=== PATIENT | female | born 1970 | race Caucasian/White ===

== ENCOUNTER 2017-11-23 09:47 | Outpatient (CLI) | payer BC | END 2017-11-23 09:48 | disposition home or self-care (01) | LOC: BICMAMMO 09:47 | PROVIDERS: ATTEND Family Medicine | DX: Z12.31 Encounter for screening mammogram for malignant neoplasm of breast (principal) | CPT/HCPCS: 77063; 77067 ==

== ENCOUNTER 2018-06-20 12:22 | Day surgery (SDC) | payer BC ==
[2018-06-20] MEDS ORDERED: Clindamycin/D5W 600 mg/50 ml Premix Bag ONE (14:51)
[2018-06-20] MEDS ORDERED: Ondansetron HCl/PF 4 MG/2 ML Vial ONE (15:39)
[2018-06-20] MEDS ORDERED: Lidocaine 1% PF 5 ML VIAL ONE (15:39)
[2018-06-20] MEDS ORDERED: Ketorolac Tromethamine 30 MG/ML VIAL ONE (15:39)
[2018-06-20] MEDS ORDERED: PROPOFOL 200 MG/20 ML VIAL ONE (15:39)
[2018-06-20] MEDS ORDERED: Dexamethasone 20 MG/5 ML VIAL ONE (15:39)
[2018-06-20] MEDS ORDERED: ePHEDrine/0.9% NaCl/PF SYRINGE 50 mg/10 ml ONE (15:39)
[2018-06-20] MEDS ORDERED: Fentanyl 100 MCG/2 ML VIAL ONE (16:16)
[2018-06-20] MEDS ORDERED: Bupivacaine HCl 0.5%/Epinephrine 1:200,000/PF 30 ml Vial ONE (17:24)
[2018-06-20] MEDS ORDERED: HYDROcodone/Acetaminophen 5/325 mg Tablet ONE (18:49)
--- NOTE | 2018-06-20 20:16 | RAD ---
LEFT ANKLE THREE VIEWS: 06/20/18 HISTORY: Fracture of the distal left fibula. FINDINGS/IMPRESSION: Three spot fluoroscopic intraoperative images of the left ankle demonstrate interval reduction and in ternal fixation of the distal left fibular fracture with screw since 06/18/18. POS: [facility]
--- NOTE | 2018-06-21 15:31 | OP ---
DATE OF PROCEDURE: 06/20/2018 PREOPERATIVE DIAGNOSIS: Left lateral malleolus fracture. POSTOPERATIVE DIAGNOSIS: Left lateral malleolus fracture. SURGICAL PROCEDURE: Open reduction with internal fixation left lateral malleolus. ANESTHESIA: General. SURGEON: Valdo Deleon M.D. PRESS OPERATOR [employer]BON BLOCKS: Edwin Salvador PA-C. TOURNIQUET TIME: Sixteen minutes at 300 mmHg. IMPLANTS: Synthes 6.5 mm cancellous screw with 32 mm threads. COMPLICATIONS: None. DRAINS: None. SPECIMEN: None. OUTCOME: Near anatomic alignment. INDICATIONS: Ms. Mathis is a pleasant 47-year-old lady status post twisting injury to left ankle emanuel taining a mildly displaced lateral malleolus fracture. After discussion with patient including risks and benefits, we have decided to proceed with open reduction and internal fixation. Informed consen t has been obtained. I believe all questions have been answered. DESCRIPTION OF PROCEDURE: Patient was brought to the operating room and a timeout performed followed by induction of general anesthesia. The patient was then positioned supine on the OR table and a st erile prep and drape was performed of the left lower extremity. Next, the limb was exsanguinated wit h Esmarch bandage and tourniquet inflated to 300 mmHg. A small vertical incision was made extending from just distal to the tip of the lateral malleolus proximally for a distance of approximately 1 inc h. After the skin was sharply incised, dissection was carried down bluntly exposing the underlying p eriosteum that had torn in line with the fracture line. The periosteum was removed from the fracture gap and the fracture reduced and held in place with a bone tenaculum. Next, a 4.5 mm drill was used to obtain a starting point at the tip of the lateral malleolus. This was then followed by insertion of a 6.5 mm cancellous screw up the shaft of the fibula getting excellent compression across the fra cture as visualized both directly and through C-arm imaging. Once appropriately positioned, the woun d was irrigated with normal saline with bulb syringe and then closed in layers with 0 Vicryl deep, fo llowed by 2-0 Vicryl and then bree for the skin. A Xeroform gauze, Webril, and fiberglass splint was applied to the ankle. Tourniquet was let down and then patient was transferred to recovery room in stable condition. There were no complications. The patient tolerated the procedure well.
== END 2018-06-20 19:30 | disposition home or self-care (01) ==
LOC: SDC 12:22
PROVIDERS: ATTEND Orthopaedic Surgery
PROC: 0QSK04Z Reposition Left Fibula with Internal Fixation Device, Open Approach (ICD-10-PCS; principal; 2018-06-20)
DX: S82.62XA Displaced fracture of lateral malleolus of left fibula, initial encounter for closed fracture (principal); F17.200 Nicotine dependence, unspecified, uncomplicated; Z88.0 Allergy status to penicillin; Z88.5 Allergy status to narcotic agent; W18.42XA Slipping, tripping and stumbling without falling due to stepping into hole or opening, initial encounter
CPT/HCPCS: 76001; C1713; J0670; J1100; J1885; J2001; J2405; J2704; J3010; J3490

== ENCOUNTER 2021-02-10 18:14 | Inpatient (IN) | payer SELFPAY ==
[2021-02-10] MEDS ORDERED: Ondansetron PF 4 MG/2 ML Vial IVP PRN ×2 (21:30→23:41)
[2021-02-10] MEDS ORDERED: Acetaminophen 325 MG TAB PO PRN ×2 (21:30→23:41)
[2021-02-10] MEDS ORDERED: Ondansetron ODT 4 MG TAB SL PRN (21:30)
[2021-02-10] MEDS ORDERED: Sodium Chloride 0.9% 1,000 ML IV SCH (21:30)
[2021-02-10 21:42] VITALS: BMI 32.6
[2021-02-10] MEDS ORDERED: Loperamide HCl 2 MG CAP PO PRN (23:41)
[2021-02-10] MEDS ORDERED: Benzonatate 100 MG CAP PO PRN (23:44)
[2021-02-10] MEDS: Sodium Chloride 0.9% 1,000 ML IV SCH (23:59)
[2021-02-11] MEDS: Guaifenesin DM 100-10/5 ML UDCUP PO PRN ×2 (04:06→08:08)
[2021-02-11] MEDS: Sodium Chloride 0.9% 1,000 ML IV SCH (05:19)
[2021-02-11 06:56] LABS: #Lymphocytes 0.7 thou/uL (1.20-3.40); #Monocytes 0.2 thou/uL (0.11-0.59); #Neutrophils 3.4 thou/uL (1.40-6.50); %Basophils 0.4 % (0.0-1.0); %Eosinophils 0.1 % (0.0-10.0); %Lymphocytes 16.3 % (21.0-51.0); %Monocytes 4.6 % (0.0-10.0); %Neutrophils 78.6 % (42.0-75.0); Hemoglobin 12.7 g/dL (12.0-16.0); Mean Corpuscular HGB CONC 32.4 g/dL (32.0-36.0); Mean Corpuscular Hemoglobin 29.6 pg (27.0-31.0); Mean Corpuscular Volume 91.3 fL (78.0-98.0); Mean Platelet Volume 8.3 fL (7.4-10.4); Platelet Count 213 thou/uL (130-400); RBC Distribution Width 12.4 % (11.5-14.5); White Blood Cell (WBC) Count 4.4 thou/uL (4.8-10.8)
[2021-02-11 07:11] LABS: Anion Gap 12 mmol/L (10-20); BUN (Urea Nitrogen) 12 mg/dL (9.8-20.1); Calc. Creatinine Clearance 122 mL/min (70-130); Calcium 8.2 mg/dL (7.8-10.44); Carbon Dioxide 21 mmol/L (22-29); Chloride 112 mmol/L (98-107); Glucose 118 mg/dL (70-105); Sodium 141 mmol/L (136-145)
[2021-02-11 07:12] LABS: ALT (SGPT) 95 U/L (8-55); AST (SGOT) 91 U/L (5-34); Alkaline Phosphatase 113 U/L (40-110); Bilirubin, Direct 0.2 mg/dL (0.1-0.3); Bilirubin, Total 0.4 mg/dL (0.2-1.2); CRP (Inflammatory) 10.81 mg/dL (= or < 0.5); Protein, Total 5.9 g/dL (6.0-8.3)
[2021-02-11] MEDS: Zinc Sulfate 220 MG CAP PO SCH (08:05)
[2021-02-11] MEDS: Ascorbic Acid 500 mg Chewable Tablet PO SCH (08:05)
[2021-02-11] MEDS: Dexamethasone 4 mg/ml Vial SLOW IVP SCH (08:05)
[2021-02-11] MEDS: Enoxaparin Sodium 40 MG/0.4 ML SYRINGE SC SCH ×2 (08:06→19:51)
[2021-02-11] MEDS ORDERED: Famotidine 20 MG TAB PO SCH (09:00)
[2021-02-12] MEDS: Guaifenesin DM 100-10/5 ML UDCUP PO PRN ×3 (04:23→14:58)
[2021-02-12 06:18] LABS: #Lymphocytes 1.3 thou/uL (1.20-3.40); #Monocytes 0.5 thou/uL (0.11-0.59); #Neutrophils 7.2 thou/uL (1.40-6.50); %Basophils 0.3 % (0.0-1.0); %Eosinophils 0.1 % (0.0-10.0); %Lymphocytes 14.3 % (21.0-51.0); %Monocytes 5.9 % (0.0-10.0); %Neutrophils 79.5 % (42.0-75.0); Hemoglobin 12.6 g/dL (12.0-16.0); Mean Corpuscular HGB CONC 31.5 g/dL (32.0-36.0); Mean Corpuscular Hemoglobin 28.8 pg (27.0-31.0); Mean Corpuscular Volume 91.3 fL (78.0-98.0); Mean Platelet Volume 8.5 fL (7.4-10.4); Platelet Count 258 thou/uL (130-400); RBC Distribution Width 12.4 % (11.5-14.5); Red Blood Cell (RBC) Count 4.37 mill/uL (4.20-5.40)
[2021-02-12 06:42] LABS: ALT (SGPT) 92 U/L (8-55); AST (SGOT) 63 U/L (5-34); Albumin 3.1 g/dL (3.5-5.0); Alkaline Phosphatase 112 U/L (40-110); Anion Gap 12 mmol/L (10-20); BUN (Urea Nitrogen) 11 mg/dL (9.8-20.1); Bilirubin, Direct 0.3 mg/dL (0.1-0.3); Bilirubin, Total 0.5 mg/dL (0.2-1.2); Calc. Creatinine Clearance 115 mL/min (70-130); Calcium 8.7 mg/dL (7.8-10.44); Carbon Dioxide 23 mmol/L (22-29); Chloride 110 mmol/L (98-107); Glucose 120 mg/dL (70-105); Potassium 3.7 mmol/L (3.5-5.1); Sodium 141 mmol/L (136-145)
[2021-02-12] MEDS: Dexamethasone 4 mg/ml Vial SLOW IVP SCH (08:40)
[2021-02-12] MEDS: Zinc Sulfate 220 MG CAP PO SCH (08:40)
[2021-02-12] MEDS: Ascorbic Acid 500 mg Chewable Tablet PO SCH (08:40)
[2021-02-12] MEDS: Enoxaparin Sodium 40 MG/0.4 ML SYRINGE SC SCH ×2 (08:41→20:04)
[2021-02-12] MEDS: Benzonatate 100 MG CAP PO SCH ×2 (14:58→20:04)
[2021-02-13 06:47] LABS: Anion Gap 11 mmol/L (10-20); BUN (Urea Nitrogen) 10 mg/dL (9.8-20.1); Calc. Creatinine Clearance 109 mL/min (70-130); Calcium 8.8 mg/dL (7.8-10.44); Carbon Dioxide 27 mmol/L (22-29); Chloride 109 mmol/L (98-107); Glucose 96 mg/dL (70-105); Potassium 3.7 mmol/L (3.5-5.1); Sodium 143 mmol/L (136-145)
[2021-02-13] MEDS: Guaifenesin DM 100-10/5 ML UDCUP PO PRN ×3 (06:49→21:04)
[2021-02-13 07:37] LABS: #Basophils 0.1 thou/uL (0.0-0.2); #Eosinphils 0.1 thou/uL (0.0-0.7); #Lymphocytes 1.7 thou/uL (1.20-3.40); #Monocytes 0.6 thou/uL (0.11-0.59); #Neutrophils 7.6 thou/uL (1.40-6.50); %Basophils 0.6 % (0.0-1.0); %Eosinophils 0.9 % (0.0-10.0); %Lymphocytes 16.8 % (21.0-51.0); %Neutrophils 75.7 % (42.0-75.0); Hemoglobin 13.3 g/dL (12.0-16.0); Mean Corpuscular HGB CONC 32.7 g/dL (32.0-36.0); Mean Corpuscular Volume 91.9 fL (78.0-98.0); Mean Platelet Volume 9.7 fL (7.4-10.4); Platelet Count 81 thou/uL (130-400); Platelet Morphology Comment Appears Decreased; RBC Distribution Width 12.2 % (11.5-14.5); Red Blood Cell (RBC) Count 4.43 mill/uL (4.20-5.40); White Blood Cell (WBC) Count 10.1 thou/uL (4.8-10.8)
[2021-02-13 07:39] LABS: MDiff Complete? YES
[2021-02-13] MEDS: Dexamethasone 4 mg/ml Vial SLOW IVP SCH (08:35)
[2021-02-13] MEDS: Zinc Sulfate 220 MG CAP PO SCH (08:35)
[2021-02-13] MEDS: Ascorbic Acid 500 mg Chewable Tablet PO SCH (08:35)
[2021-02-13] MEDS: Benzonatate 100 MG CAP PO SCH ×3 (08:35→20:46)
[2021-02-13] MEDS: Enoxaparin Sodium 40 MG/0.4 ML SYRINGE SC SCH ×2 (08:36→20:47)
[2021-02-14] MEDS: Guaifenesin DM 100-10/5 ML UDCUP PO PRN ×2 (05:54→16:10)
[2021-02-14 06:24] LABS: #Eosinphils 0.1 thou/uL (0.0-0.7); #Lymphocytes 1.9 thou/uL (1.20-3.40); #Monocytes 0.8 thou/uL (0.11-0.59); %Basophils 0.2 % (0.0-1.0); %Eosinophils 0.9 % (0.0-10.0); %Lymphocytes 24.7 % (21.0-51.0); %Monocytes 9.8 % (0.0-10.0); %Neutrophils 64.4 % (42.0-75.0); Hemoglobin 12.1 g/dL (12.0-16.0); Mean Corpuscular HGB CONC 31.8 g/dL (32.0-36.0); Mean Corpuscular Hemoglobin 29.2 pg (27.0-31.0); Mean Corpuscular Volume 91.7 fL (78.0-98.0); Mean Platelet Volume 8.5 fL (7.4-10.4); Platelet Count 286 thou/uL (130-400); RBC Distribution Width 12.2 % (11.5-14.5); Red Blood Cell (RBC) Count 4.13 mill/uL (4.20-5.40); White Blood Cell (WBC) Count 7.7 thou/uL (4.8-10.8)
[2021-02-14 06:57] LABS: Anion Gap 12 mmol/L (10-20); BUN (Urea Nitrogen) 11 mg/dL (9.8-20.1); Calc. Creatinine Clearance 124 mL/min (70-130); Calcium 8.5 mg/dL (7.8-10.44); Carbon Dioxide 27 mmol/L (22-29); Chloride 108 mmol/L (98-107); Glucose 100 mg/dL (70-105); Potassium 4.3 mmol/L (3.5-5.1); Sodium 143 mmol/L (136-145)
[2021-02-14 07:58] VITALS: BP 113/70; TEMP 98.2
[2021-02-14] MEDS: Ascorbic Acid 500 mg Chewable Tablet PO SCH (08:33)
[2021-02-14] MEDS: Dexamethasone 4 mg/ml Vial SLOW IVP SCH (08:34)
[2021-02-14] MEDS: Zinc Sulfate 220 MG CAP PO SCH (08:34)
[2021-02-14] MEDS: Enoxaparin Sodium 40 MG/0.4 ML SYRINGE SC SCH (08:34)
[2021-02-14] MEDS: Benzonatate 100 MG CAP PO SCH ×2 (08:34→16:10)
== END 2021-02-14 16:34 | disposition home or self-care (01) | DRG 177 ==
LOC: T4-A 21:15
PROVIDERS: ADMIT Internal Medicine; ATTEND Hospitalist
DX: U07.1 COVID-19 (principal); J12.82 Pneumonia due to coronavirus disease 2019; J96.01 Acute respiratory failure with hypoxia; F17.290 Nicotine dependence, other tobacco product, uncomplicated; D72.829 Elevated white blood cell count, unspecified; T38.0X5A Adverse effect of glucocorticoids and synthetic analogues, initial encounter; R74.01 Elevation of levels of liver transaminase levels; Z88.5 Allergy status to narcotic agent; Z88.1 Allergy status to other antibiotic agents; Z88.0 Allergy status to penicillin; Z88.2 Allergy status to sulfonamides; Z90.49 Acquired absence of other specified parts of digestive tract; Z98.890 Other specified postprocedural states
CPT/HCPCS: 36415; 71045; 80048; 80076; 82728; 84145; 85025; 85379; 86140; J1100; J1650